=== PATIENT | male | born 1940 | race Hispanic/Latino ===

== ENCOUNTER 2017-08-07 18:06 | Emergency (ER) | payer MEDICARE ==
[~2017-08-07] VITALS: Ht 177.8 cm; Wt 95.3 kg
[~2017-08-07 18:06] MED LIST: ASPIR 8181 MG; FUROSEMIDE40 MG PO; LISINOPRIL2.5 MG PO; METOPROLOL TART25 MG PO; POTASSIUM CHLO10 ME1 PO
[2017-08-07] MEDS ORDERED: HYDROCODONE/APAP 10MG-325MG TAB PO ONE (19:00)
[2017-08-07] MEDS ORDERED: INDOMETHACIN 75 MG CAPCR PO NR (19:30)
--- NOTE | 2017-08-07 19:35 | Diagnostic Imaging Report ---
FOOT RIGHT COMPLETE - 3 views HISTORY: Pain. Possible spider bite. COMPARISON: None available. FINDINGS: Bones: No acute displaced fracture. Osseous alignment is within normal limits. Joints: Mild hallux valgus deformity and degenerative change of first metatarsophalangeal joint. Soft tissues: Soft tissue swelling about the first metatarsophalangeal joint medially. No radio-opaque foreign body. IMPRESSION: Mild hallux valgus deformity and degenerative change of first metatarsophalangeal joint. Signed by: Dr. Prabhu Teague M.D. on 08/07/2017 7:31 PM
[2017-08-07 21:18] VITALS: BP 154/86
== END 2017-08-07 21:21 | disposition home or self-care (01) ==
LOC: ER 18:06
DX: M79.671 Pain in right foot (principal); M10.071 Idiopathic gout, right ankle and foot; I10 Essential (primary) hypertension; I25.10 Atherosclerotic heart disease of native coronary artery without angina pectoris
CPT/HCPCS: 99283

== ENCOUNTER 2021-03-23 11:28 | Observation (INO) | payer MEDICARE, OTHER ==
[~2021-03-23] VITALS: Ht 177.8 cm; Wt 96.2 kg
[~2021-03-23 11:28] MED LIST changes: +ECOTRIN81 MG PO; +FAMOTIDINE20 MG PO; +LOPRESSOR25 MG PO; +TESSALON PERLE100 MG PO; +XARELTO20 MG PO
[2021-03-23] MEDS ORDERED: NEURONTIN100 MG PO (11:33)
[2021-03-23] MEDS ORDERED: VITAMIN B-121000 MC2 PO (11:34)
[2021-03-23] MEDS ORDERED: METFORMIN HCL500 M1 PO (11:35)
[2021-03-23] MEDS ORDERED: ULTRAM50 MG PO (11:35)
[2021-03-23] MEDS ORDERED: LIPITOR20 MG PO (11:36)
[2021-03-23] MEDS ORDERED: VITAMIN D3 COM1 EACH (11:37)
[2021-03-23] MEDS ORDERED: HYDROCHLOROTH12.5 MG (11:38)
[2021-03-23 12:01] LABS: BASOPHILS % 0.3 % (0.0-1.0); EOSINOPHILS % 0.1 % (0.0-6.0); HEMATOCRIT 42.9 % (38.2-49.6); HEMOGLOBIN 14.4 g/dL (14.0-18.0); LYMPHOCYTES # (AUTO) 0.9 (1.0-3.2); LYMPHOCYTES % 9.8 % (18.0-39.1); MEAN CORPUSCULAR HGB CONC 33.6 g/dL (31-35); MEAN CORPUSCULAR VOLUME 89.4 fL (81-99); MONOCYTES # (AUTO) 0.7 (0.2-0.8); NEUTROPHILS # (AUTO) 7.1 (2.1-6.9); NEUTROPHILS % 81.2 % (38.7-80.0); PLATELET COUNT 215 x10e3/uL (140-360); RED CELL DISTRIBUTION WIDTH 12.3 % (11.7-14.4)
[2021-03-23 12:40] LABS: ALBUMIN/GLOBULIN RATIO 1.2 (0.8-2.0); ANION GAP 13.5 mmol/L (8-16); CALCIUM 9.1 mg/dL (8.4-10.2); CREATININE, SERUM 1.25 mg/dL (0.72-1.25); POTASSIUM 4.5 mmol/L (3.5-5.1)
[2021-03-23] MEDS ORDERED: METOPROLOL TARTRATE 25 MG TAB PO ONE (14:00)
[2021-03-23] MEDS ORDERED: ONDANSETRON HCL INJ 2MG/ML 2ML 2 MG/ML VIAL IV PRN (15:45)
[2021-03-23 16:29] VITALS: BP 124/84
[2021-03-23] MEDS: INSULIN LISPRO 100 UNIT/1 ML 3ML VIAL SQ SCH ×2 (16:30→21:00)
[2021-03-23] MEDS ORDERED: DEXTROSE 50% SYRINGE 50 ML IV PRN (16:45)
[2021-03-23 17:29] VITALS: BP 124/84
[2021-03-23 20:00] VITALS: BP_SYST 127; BP_SYST 130; BP_DIAS 57; BP_DIAS 90
[2021-03-24] VITALS (8 sets, daily range): BP systolic 116–153; BP diastolic 82–98
[2021-03-24 05:26] LABS: BASOPHILS % 0.3 % (0.0-1.0); EOSINOPHILS # (AUTO) 0.1 (0.0-0.4); EOSINOPHILS % 1.5 % (0.0-6.0); HEMATOCRIT 41.1 % (38.2-49.6); HEMOGLOBIN 13.7 g/dL (14.0-18.0); LYMPHOCYTES # (AUTO) 1.4 (1.0-3.2); MEAN CORPUSCULAR HEMOGLOBIN 30.1 pg (28-32); MEAN CORPUSCULAR HGB CONC 33.3 g/dL (31-35); MEAN CORPUSCULAR VOLUME 90.3 fL (81-99); MONOCYTES # (AUTO) 0.8 (0.2-0.8); MONOCYTES % 10.7 % (4.4-11.3); NEUTROPHILS % 68.1 % (38.7-80.0); PLATELET COUNT 184 x10e3/uL (140-360); RED BLOOD COUNT 4.55 x10e6/uL (4.3-5.7); RED CELL DISTRIBUTION WIDTH 12.2 % (11.7-14.4)
[2021-03-24 05:43] LABS: INR 1.14; PARTIAL THROMBOPLASTIN TIME 39.4 seconds (23.8-35.5); PROTHROMBIN TIME 14.8 seconds (11.9-14.5)
[2021-03-24 05:51] LABS: ANION GAP 13.9 mmol/L (8-16); CALCIUM 8.9 mg/dL (8.4-10.2); CREATININE, SERUM 0.85 mg/dL (0.72-1.25); POTASSIUM 3.9 mmol/L (3.5-5.1)
[2021-03-24 06:11] LABS: THYROID STIMULATING HORMONE 2.192 uIU/mL (0.350-4.940)
[2021-03-24] MEDS: INSULIN LISPRO 100 UNIT/1 ML 3ML VIAL SQ SCH ×4 (07:30→20:32)
[2021-03-24] MEDS: GABAPENTIN 100 MG CAP PO SCH ×2 (08:20→16:32)
[2021-03-24] MEDS: FAMOTIDINE 20 MG TAB PO SCH ×2 (08:20→16:32)
[2021-03-24] MEDS: CYANOCOBALAMIN 1,000 MCG TAB PO SCH (08:20)
[2021-03-24] MEDS ORDERED: METOPROLOL TARTRATE 25 MG TAB PO SCH (09:00)
[2021-03-24] MEDS: ACETAMINOPHEN 325 MG TAB PO PRN ×3 (10:39→23:10)
[2021-03-24] MEDS: CARVEDILOL 12.5 MG TAB PO SCH (16:05)
[2021-03-25 00:05] VITALS: BP 163/98
[2021-03-25 04:00] VITALS: BP 162/99
[2021-03-25] MEDS: INSULIN LISPRO 100 UNIT/1 ML 3ML VIAL SQ SCH ×2 (07:21→11:21)
[2021-03-25 07:44] VITALS: BP 160/88
[2021-03-25] MEDS: FAMOTIDINE 20 MG TAB PO SCH (08:06)
[2021-03-25] MEDS: CYANOCOBALAMIN 1,000 MCG TAB PO SCH (08:07)
[2021-03-25] MEDS: GABAPENTIN 100 MG CAP PO SCH (08:07)
[2021-03-25] MEDS: CARVEDILOL 12.5 MG TAB PO SCH (08:07)
[2021-03-25] MEDS: ACETAMINOPHEN 325 MG TAB PO PRN (08:39)
[2021-03-25 08:44] VITALS: BP 152/109
[2021-03-25] MEDS ORDERED: LOSARTAN POTASSIUM 25 MG TAB PO SCH (09:00)
[2021-03-25 12:15] VITALS: BP 153/82
[2021-03-25] MEDS ORDERED: COZAAR25 MG PO (14:00)
[2021-03-25] MEDS ORDERED: COREG12.5 MG PO (14:00)
[2021-03-25 15:18] VITALS: BP 115/49
== END 2021-03-25 15:43 | disposition home or self-care (01) ==
LOC: ER 11:32 → ERHOLD 13:40 → MED/SURG3 16:16
PROVIDERS: ADMIT Internal Medicine; ATTEND Internal Medicine
DX: R55 Syncope and collapse (principal); I48.11 Longstanding persistent atrial fibrillation; E11.9 Type 2 diabetes mellitus without complications; R00.0 Tachycardia, unspecified; E78.00 Pure hypercholesterolemia, unspecified; I11.0 Hypertensive heart disease with heart failure; I50.22 Chronic systolic (congestive) heart failure; M19.012 Primary osteoarthritis, left shoulder; M19.011 Primary osteoarthritis, right shoulder; Z86.73 Personal history of transient ischemic attack (TIA), and cerebral infarction without residual deficits; M54.12 Radiculopathy, cervical region; Z79.82 Long term (current) use of aspirin; Z79.84 Long term (current) use of oral hypoglycemic drugs
CPT/HCPCS: 36415 ×3; 70450; 71045; 72125; 73030 ×2; 80048; 80053; 80061; 82550; 82948 ×3; 83036; 83880; 84443; 84484 ×2; 85025 ×2; 85610 ×2; 85730; 86140; 93005; 93306; 93880; 97116; 97162; 99285; G0378 ×3; U0002

== ENCOUNTER 2021-08-16 16:38 | Inpatient (IN) | payer MEDICARE, MEDICAID ==
[~2021-08-16] VITALS: Ht 177.8 cm; Wt 97.5 kg
[~2021-08-16 16:38] MED LIST changes: +COREG12.5 MG PO; +COZAAR25 MG PO; +HYDROCHLOROTH12.5 MG; +LIPITOR20 MG PO; +METFORMIN HCL500 M1 PO; +NEURONTIN100 MG PO; +ULTRAM50 MG PO; +VITAMIN B-121000 MC2 PO; +VITAMIN D3 COM1 EACH
[2021-08-16 17:42] LABS: BASOPHILS % 0.2 % (0.0-1.0); EOSINOPHILS # (AUTO) 0.1 (0.0-0.4); EOSINOPHILS % 1.1 % (0.0-6.0); HEMATOCRIT 41.8 % (38.2-49.6); HEMOGLOBIN 13.4 g/dL (14.0-18.0); LYMPHOCYTES # (AUTO) 1.2 (1.0-3.2); MEAN CORPUSCULAR HEMOGLOBIN 28.2 pg (28-32); MEAN CORPUSCULAR HGB CONC 32.1 g/dL (31-35); MONOCYTES # (AUTO) 0.8 (0.2-0.8); MONOCYTES % 8.6 % (4.4-11.3); NEUTROPHILS # (AUTO) 7.3 (2.1-6.9); NEUTROPHILS % 76.6 % (38.7-80.0); PLATELET COUNT 209 x10e3/uL (140-360); RED BLOOD COUNT 4.75 x10e6/uL (4.3-5.7); RED CELL DISTRIBUTION WIDTH 15.4 % (11.7-14.4)
[2021-08-16 18:01] LABS: ALBUMIN 3.8 g/dL (3.5-5.0); ALBUMIN/GLOBULIN RATIO 1.1 (0.8-2.0); ANION GAP 17.2 mmol/L (8-16); CALCIUM 9.5 mg/dL (8.4-10.2); CREATININE, SERUM 1.11 mg/dL (0.72-1.25); POTASSIUM 4.2 mmol/L (3.5-5.1)
[2021-08-16] MEDS ORDERED: SODIUM CHLORIDE 0.9% 500ML 500 ML IV ONE (18:45)
[2021-08-16] MEDS ORDERED: SODIUM CHLORIDE 0.9% 50ML 50 ML ONE (19:35)
[2021-08-16] MEDS ORDERED: IOPAMIDOL 370 MG/ML 200 ML INFUS..BTL INJ ONE (19:35)
[2021-08-16] MEDS: CEFTRIAXONE 1 GM in SODIUM CHLORIDE 0.9% 50ML 50 ML IV SCH (20:10)
[2021-08-16] MEDS ORDERED: FUROSEMIDE INJ 10 MG/ML 4 ML VIAL IV ONE (20:15)
[2021-08-16] MEDS ORDERED: DILTIAZEM HCL 5 MG/ML 5 ML VIAL IV ONE (22:00)
[2021-08-16] MEDS ORDERED: DILTIAZEM HCL VIAL 5 ML ONE (22:12)
[2021-08-16 22:50] VITALS: BP 123/79
[2021-08-16 23:03] VITALS: BP 123/79
[2021-08-16 23:20] VITALS: BP 123/79
[2021-08-16] MEDS ORDERED: ALLOPURINOL100 MG PO (23:31)
[2021-08-16] MEDS ORDERED: JANUVIA50 MG PO (23:34)
[2021-08-17] VITALS (9 sets, daily range): BP systolic 104–137; BP diastolic 63–90
[2021-08-17] MEDS ORDERED: DEXTROSE 50% SYRINGE 50 ML IV PRN (00:45)
[2021-08-17 01:06] LABS: CREATINE KINASE MB 2.2 ng/mL (0-5.0)
[2021-08-17] MEDS ORDERED: ATORVASTATIN CA10 MG PO (01:06)
[2021-08-17] MEDS ORDERED: CARVEDILOL6.25 MG PO (01:06)
[2021-08-17] MEDS ORDERED: FLOMAX0.4 MG PO (01:06)
[2021-08-17 05:00] LABS: BASOPHILS % 0.3 % (0.0-1.0); EOSINOPHILS # (AUTO) 0.2 (0.0-0.4); EOSINOPHILS % 2.3 % (0.0-6.0); HEMATOCRIT 38.6 % (38.2-49.6); HEMOGLOBIN 12.7 g/dL (14.0-18.0); LYMPHOCYTES # (AUTO) 1.2 (1.0-3.2); LYMPHOCYTES % 17.6 % (18.0-39.1); MEAN CORPUSCULAR HEMOGLOBIN 28.2 pg (28-32); MEAN CORPUSCULAR HGB CONC 32.9 g/dL (31-35); MEAN CORPUSCULAR VOLUME 85.6 fL (81-99); MONOCYTES # (AUTO) 0.8 (0.2-0.8); MONOCYTES % 11.5 % (4.4-11.3); NEUTROPHILS # (AUTO) 4.5 (2.1-6.9); NEUTROPHILS % 67.8 % (38.7-80.0); PLATELET COUNT 187 x10e3/uL (140-360); RED BLOOD COUNT 4.51 x10e6/uL (4.3-5.7); RED CELL DISTRIBUTION WIDTH 15.1 % (11.7-14.4)
[2021-08-17 05:19] LABS: INR 1.37; PARTIAL THROMBOPLASTIN TIME 37.1 seconds (23.8-35.5)
[2021-08-17 05:30] LABS: ALBUMIN 3.3 g/dL (3.5-5.0); ALBUMIN/GLOBULIN RATIO 1.1 (0.8-2.0); ANION GAP 14.7 mmol/L (8-16); CALCIUM 8.7 mg/dL (8.4-10.2); CHOL/HDL RATIO 5.4 (3.9-4.7); CREATININE, SERUM 1.12 mg/dL (0.72-1.25); MAGNESIUM 1.9 MG/DL (1.3-2.1); POTASSIUM 3.7 mmol/L (3.5-5.1)
[2021-08-17 05:53] LABS: THYROID STIMULATING HORMONE 2.862 uIU/mL (0.350-4.940)
[2021-08-17] MEDS: INSULIN LISPRO 100 UNIT/1 ML 3ML VIAL SQ SCH ×4 (07:30→21:00)
[2021-08-17] MEDS ORDERED: SODIUM CHLORIDE 0.9% 250ML 500 ML ONE (08:11)
[2021-08-17] MEDS: CARVEDILOL 12.5 MG TAB PO SCH ×2 (09:00→16:40)
[2021-08-17] MEDS: FUROSEMIDE INJ 10 MG/ML 4 ML VIAL IV SCH ×2 (09:50→21:21)
[2021-08-17] MEDS: RIVAROXABAN 20 MG TABLET PO SCH (16:41)
[2021-08-17] MEDS ORDERED: AMIODARONE HCL 360MG 200 ML IV SCH ×2 (17:30→18:00)
[2021-08-17] MEDS: VALSARTAN/SACUBITRIL 24MG/26MG 1 EA TAB PO SCH (18:00)
[2021-08-17] MEDS ORDERED: AMIODARONE HCL 150MG 100 ML IV ONE (18:00)
[2021-08-17] MEDS ORDERED: AMIODARONE 900MG 500 ML IV SCH (18:15)
[2021-08-17] MEDS: AMIODARONE HCL 200 MG TAB PO SCH (18:25)
[2021-08-17 20:08] LABS: CREATINE KINASE MB 1.9 ng/mL (0-5.0)
[2021-08-17] MEDS: CEFTRIAXONE 1 GM in SODIUM CHLORIDE 0.9% 50ML 50 ML IV SCH (21:21)
[2021-08-18] MEDS ORDERED: AMIODARONE 900MG 500 ML IV SCH (00:30)
[2021-08-18] MEDS: AMIODARONE HCL 200 MG TAB PO SCH ×3 (02:13→18:00)
[2021-08-18 05:56] VITALS: BP 108/82
[2021-08-18 05:59] LABS: BASOPHILS % 0.4 % (0.0-1.0); EOSINOPHILS # (AUTO) 0.1 (0.0-0.4); HEMATOCRIT 40.7 % (38.2-49.6); HEMOGLOBIN 13.1 g/dL (14.0-18.0); LYMPHOCYTES # (AUTO) 1.3 (1.0-3.2); LYMPHOCYTES % 19.2 % (18.0-39.1); MEAN CORPUSCULAR HEMOGLOBIN 28.2 pg (28-32); MEAN CORPUSCULAR HGB CONC 32.2 g/dL (31-35); MEAN CORPUSCULAR VOLUME 87.7 fL (81-99); MONOCYTES # (AUTO) 0.6 (0.2-0.8); MONOCYTES % 8.3 % (4.4-11.3); NEUTROPHILS # (AUTO) 4.8 (2.1-6.9); NEUTROPHILS % 69.7 % (38.7-80.0); PLATELET COUNT 217 x10e3/uL (140-360); RED BLOOD COUNT 4.64 x10e6/uL (4.3-5.7); RED CELL DISTRIBUTION WIDTH 15.2 % (11.7-14.4)
[2021-08-18 06:14] LABS: ANION GAP 18.7 mmol/L (8-16); CALCIUM 8.9 mg/dL (8.4-10.2); CREATININE, SERUM 1.2 mg/dL (0.72-1.25); MAGNESIUM 2.1 MG/DL (1.3-2.1); POTASSIUM 3.7 mmol/L (3.5-5.1)
[2021-08-18 06:36] LABS: FERRITIN 139.4 ng/mL (21.81-274.66)
[2021-08-18] MEDS: INSULIN LISPRO 100 UNIT/1 ML 3ML VIAL SQ SCH ×4 (07:30→21:00)
[2021-08-18 08:06] VITALS: BP 105/80
[2021-08-18] MEDS: FUROSEMIDE INJ 10 MG/ML 4 ML VIAL IV SCH ×2 (09:51→21:02)
[2021-08-18] MEDS: CARVEDILOL 12.5 MG TAB PO SCH ×2 (09:51→17:00)
[2021-08-18] MEDS: VALSARTAN/SACUBITRIL 24MG/26MG 1 EA TAB PO SCH ×2 (09:56→21:02)
[2021-08-18 10:40] VITALS: BP 105/80
[2021-08-18 11:48] VITALS: BP 115/93
[2021-08-18] MEDS: RIVAROXABAN 20 MG TABLET PO SCH (17:16)
[2021-08-18 20:00] VITALS: BP 91/74
[2021-08-18] MEDS: CEFTRIAXONE 1 GM in SODIUM CHLORIDE 0.9% 50ML 50 ML IV SCH (20:30)
[2021-08-18 21:46] VITALS: BP 91/74
[2021-08-19] VITALS (8 sets, daily range): BP systolic 82–126; BP diastolic 64–87
[2021-08-19] MEDS: AMIODARONE HCL 200 MG TAB PO SCH ×3 (05:11→17:11)
[2021-08-19] MEDS: INSULIN LISPRO 100 UNIT/1 ML 3ML VIAL SQ SCH ×4 (07:30→21:00)
[2021-08-19] MEDS: FUROSEMIDE INJ 10 MG/ML 4 ML VIAL IV SCH (09:00)
[2021-08-19] MEDS: VALSARTAN/SACUBITRIL 24MG/26MG 1 EA TAB PO SCH ×2 (09:00→20:20)
[2021-08-19] MEDS: CARVEDILOL 12.5 MG TAB PO SCH (09:01)
[2021-08-19 10:20] LABS: ANION GAP 17.1 mmol/L (8-16); CREATININE, SERUM 1.38 mg/dL (0.72-1.25); POTASSIUM 4.1 mmol/L (3.5-5.1)
[2021-08-19] MEDS: CARVEDILOL 3.125 MG TAB PO SCH (17:00)
[2021-08-19] MEDS: RIVAROXABAN 20 MG TABLET PO SCH (17:08)
[2021-08-19] MEDS: CEFTRIAXONE 1 GM in SODIUM CHLORIDE 0.9% 50ML 50 ML IV SCH (20:20)
[2021-08-20] VITALS: BP 135/75
[2021-08-20] MEDS: AMIODARONE HCL 200 MG TAB PO SCH (03:38)
[2021-08-20 04:00] VITALS: BP 119/72
[2021-08-20] MEDS: INSULIN LISPRO 100 UNIT/1 ML 3ML VIAL SQ SCH (07:30)
[2021-08-20 08:23] VITALS: BP 133/98
[2021-08-20 08:25] VITALS: BP 133/98
[2021-08-20] MEDS ORDERED: COREG3.125 MG PO (08:26)
[2021-08-20] MEDS ORDERED: ENTRESTO 24 MG1 EACH PO (08:26)
[2021-08-20] MEDS ORDERED: AMIODARONE HCL200 MG PO (08:26)
[2021-08-20] MEDS ORDERED: AMOX TR-K CLV1 EAC2 PO (08:26)
[2021-08-20] MEDS ORDERED: XARELTO10 MG PO (08:26)
[2021-08-20] MEDS ORDERED: FUROSEMIDE 40 MG TAB PO SCH (09:00)
[2021-08-20 09:08] LABS: ANION GAP 14.1 mmol/L (8-16); CALCIUM 9.1 mg/dL (8.4-10.2); CREATININE, SERUM 1.32 mg/dL (0.72-1.25); POTASSIUM 4.1 mmol/L (3.5-5.1)
[2021-08-20] MEDS: VALSARTAN/SACUBITRIL 24MG/26MG 1 EA TAB PO SCH (09:36)
[2021-08-20] MEDS: CARVEDILOL 3.125 MG TAB PO SCH (09:36)
[2021-08-20] MEDS ORDERED: AMIODARONE HCL 200 MG TAB PO SCH ×2 (10:00)
[2021-08-20] MEDS ORDERED: FUROSEMIDE40 MG PO (10:56)
== END 2021-08-20 10:59 | disposition home or self-care (01) | DRG 193 ==
LOC: ER 17:19 → ERHOLD 20:42 → MED/SURG2 22:33 → OBSVTOIN 08-17 16:11
PROVIDERS: ADMIT Internal Medicine; ATTEND Internal Medicine
DX: J18.9 Pneumonia, unspecified organism (principal); I50.23 Acute on chronic systolic (congestive) heart failure; I42.8 Other cardiomyopathies; I11.0 Hypertensive heart disease with heart failure; I48.0 Paroxysmal atrial fibrillation; Z79.01 Long term (current) use of anticoagulants; E11.9 Type 2 diabetes mellitus without complications; E66.9 Obesity, unspecified; Z68.30 Body mass index [BMI] 30.0-30.9, adult; Z20.822 Contact with and (suspected) exposure to COVID-19
CPT/HCPCS: 36415; 71045; 71260; 80048; 80053; 80061; 82550; 82553; 82607; 82728; 82746; 82948; 83540; 83605; 83735; 83880; 84443; 84466; 84484; 85025; 85379; 85610; 85730; 87040; 93005; 93306; 94799; 99284; G0378; J0456; J0696; J1940; J7040; J7050; Q9967; U0002

== ENCOUNTER 2022-04-11 04:21 | Emergency (ER) | payer MEDICARE, OTHER ==
[~2022-04-11] VITALS: Ht 330.2 cm; Wt 97.5 kg
[~2022-04-11 04:21] MED LIST changes: +ALLOPURINOL100 MG PO; +AMIODARONE HCL200 MG PO; +AMOX TR-K CLV1 EAC2 PO; +ATORVASTATIN CA10 MG PO; +CARVEDILOL6.25 MG PO; +COREG3.125 MG PO; +ENTRESTO 24 MG1 EACH PO; +FLOMAX0.4 MG PO; +JANUVIA50 MG PO; +XARELTO10 MG PO
[2022-04-11] MEDS ORDERED: NAPROSYN500 MG PO (04:34)
[2022-04-11 05:40] VITALS: BP 166/94
== END 2022-04-11 05:40 | disposition home or self-care (01) ==
LOC: ER 04:30
DX: M25.511 Pain in right shoulder (principal); W06.XXXA Fall from bed, initial encounter; Y93.84 Activity, sleeping; Y92.89 Other specified places as the place of occurrence of the external cause; E11.9 Type 2 diabetes mellitus without complications; I50.9 Heart failure, unspecified
CPT/HCPCS: 99283

== ENCOUNTER 2025-02-01 12:59 | Inpatient (IN) | payer MEDICARE, OTHER ==
[2025-02-01] VITALS (8 sets, daily range): BP systolic 106–140; BP diastolic 60–99; PULSE 86–112; RESP 18–32; TEMP 98.2–98.4; O2SAT 96–99
[~2025-02-01] VITALS: Ht 177.8 cm; Wt 95.3 kg
[~2025-02-01 12:59] MED LIST changes: +CARVEDILOL3.125 MG PO; +CLINDAMYCIN HC150 MG PO; +LEVOFLOXACIN250 MG PO; +NAPROSYN500 MG PO
[2025-02-01 14:06] LABS: BASOPHILS % 0.4 % (0.0-1.0); EOSINOPHILS % 0.0 % (0.0-6.0); LYMPHOCYTES % 13.8 % (18.0-39.1); MONOCYTES % 7.1 % (4.4-11.3); NEUTROPHILS % 78.3 % (38.7-80.0); RED CELL DISTRIBUTION WIDTH 13.2 % (11.7-14.4)
[2025-02-01 14:09] LABS: INR 3.33
[2025-02-01 14:19] LABS: EST GLOMERULAR FILTRATION RATE 33.0 ML/MIN (>=60)
[2025-02-01 14:29] LABS: CORONAVIRUS COVID-19 AG NEGATIVE (NEGATIVE)
[2025-02-01] MEDS: SODIUM CHLORIDE 0.9% 500ML 500 ML IV ONE (15:07)
[2025-02-01 15:22] LABS: LEUKOCYTE ESTERASE ,URINE NEGATIVE (NEGATIVE); PROTEIN,URINE DIPSTICK 2+ (NEGATIVE); URINE UROBILINOGEN >=8 mg/dL (0.2 - 1)
[2025-02-01] MEDS ORDERED: TEMAZEPAM 7.5 MG CAP PO PRN (16:30)
[2025-02-01] MEDS: ACETAMINOPHEN 325 MG TAB PO PRN (19:37)
[2025-02-01] MEDS: TAMSULOSIN HCL 0.4 MG CAP PO SCH (20:04)
[2025-02-01] MEDS: ATORVASTATIN 10 MG TAB PO SCH (20:05)
[2025-02-02] VITALS (25 sets, daily range): BP systolic 84–137; BP diastolic 53–82; PULSE 62–132; RESP 16–38; TEMP 97.9–103; O2SAT 90–100
[2025-02-02 05:28] LABS: BASOPHILS % 0.4 % (0.0-1.0); EOSINOPHILS % 0.0 % (0.0-6.0); LYMPHOCYTES % 8.1 % (18.0-39.1); MONOCYTES % 6.5 % (4.4-11.3); NEUTROPHILS % 84.6 % (38.7-80.0); RED CELL DISTRIBUTION WIDTH 13.2 % (11.7-14.4)
[2025-02-02 05:42] LABS: CHOL/HDL RATIO 8.5 (3.9-4.7); EST GLOMERULAR FILTRATION RATE 42.0 ML/MIN (>=60); LDL CHOLESTEROL 66.0 MG/DL (60-130)
[2025-02-02] MEDS: AMIODARONE HCL 200 MG TAB PO SCH (09:00)
[2025-02-02 09:13] LABS: BAND NEUTROPHILS % (MANUAL) 1 %; EOSINOPHILS % (MANUAL) 1 % (0-7); LYMPHOCYTES % (MANUAL) 8 % (19-48); MONOCYTES % (MANUAL) 2 % (3.4-9.0); NEUTROPHILS % (MANUAL) 86 % (40-74); PLATELET ESTIMATE MODERATELY DECREASED; PLATELET MORPHOLOGY COMMENT NORMAL; RBC MORPHOLOGY COMMENT NORMAL; REACTIVE LYMPHOCYTES 2
[2025-02-02] MEDS ORDERED: DOCUSATE SODIUM 100 MG CAP PO PRN (09:15)
[2025-02-02] MEDS ORDERED: DEXTROSE 50% SYRINGE 50 ML IV PRN (09:15)
[2025-02-02] MEDS: SODIUM CHLORIDE 0.9% 1000ML 1,000 ML IV SCH (09:39)
[2025-02-02] MEDS: CARVEDILOL 3.125 MG TAB PO SCH (09:40)
[2025-02-02] MEDS: RIVAROXABAN 10 MG TABLET PO SCH (12:35)
[2025-02-02] MEDS: INSULIN REGULAR, HUMAN 100 UNIT/1 ML SQ SCH (13:07)
[2025-02-02] MEDS ORDERED: CARVEDILOL 3.125 MG TAB PO SCH ×2 (17:00)
[2025-02-02] MEDS: GABAPENTIN 100 MG CAP PO SCH (18:09)
[2025-02-03] VITALS (31 sets, daily range): BP systolic 79–117; BP diastolic 48–85; PULSE 92–115; RESP 16–31; TEMP 98.2–99.6; O2SAT 94–100
[2025-02-03 04:59] LABS: BASOPHILS % 0.4 % (0.0-1.0); EOSINOPHILS % 0.0 % (0.0-6.0); LYMPHOCYTES % 12.7 % (18.0-39.1); MONOCYTES % 4.7 % (4.4-11.3); NEUTROPHILS % 81.8 % (38.7-80.0); RED CELL DISTRIBUTION WIDTH 13.4 % (11.7-14.4)
[2025-02-03 05:28] LABS: EST GLOMERULAR FILTRATION RATE 41.0 ML/MIN (>=60)
[2025-02-03 08:01] LABS: BAND NEUTROPHILS % (MANUAL) 1 %; LYMPHOCYTES % (MANUAL) 11 % (19-48); MONOCYTES % (MANUAL) 2 % (3.4-9.0); NEUTROPHILS % (MANUAL) 84 % (40-74); PLATELET ESTIMATE MODERATELY DECREASED; PLATELET MORPHOLOGY COMMENT NORMAL; RBC MORPHOLOGY COMMENT NORMAL; REACTIVE LYMPHOCYTES 2
[2025-02-03] MEDS: ALLOPURINOL 100 MG TAB PO SCH (10:12)
[2025-02-04] VITALS (41 sets, daily range): BP systolic 69–121; BP diastolic 47–81; PULSE 32–146; RESP 16–33; TEMP 97.5–102; O2SAT 85–100
[2025-02-04 05:57] LABS: EST GLOMERULAR FILTRATION RATE 33.0 ML/MIN (>=60)
[2025-02-04] MEDS: ONDANSETRON HCL INJ 2MG/ML 2ML 2 MG/ML VIAL IV PRN (09:10)
[2025-02-04] MEDS: FUROSEMIDE INJ 10 MG/ML 4 ML VIAL IV ONE (10:40)
[2025-02-04] MEDS: MIDODRINE 2.5 MG TAB PO SCH (11:19)
[2025-02-04 16:01] LABS: CREATININE,URINE RANDOM 164.48 mg/dL (63-166); TOTAL PROTEIN, URINE 28.1 mg/dL (1-14)
[2025-02-04] MEDS: SODIUM CHLORIDE 0.9% 1000ML 1,000 ML IV ONE (16:12)
[2025-02-04] MEDS: MIDODRINE HCL 5 MG TABLET PO SCH (16:12)
[2025-02-04 16:40] LABS: T3 UPTAKE 33.37 % (22.5-37.0)
[2025-02-04] MEDS: ALBUTEROL/IPRATROPIUM 3 ML NEB NEB PRN (18:51)
[2025-02-05] VITALS (54 sets, daily range): BP systolic 62–111; BP diastolic 43–72; PULSE 31–143; RESP 20–34; TEMP 98.2–102.5; O2SAT 92–99
[2025-02-05 06:50] LABS: BASOPHILS % 0.4 % (0.0-1.0); EOSINOPHILS % 0.1 % (0.0-6.0); LYMPHOCYTES % 7.2 % (18.0-39.1); MONOCYTES % 4.7 % (4.4-11.3); NEUTROPHILS % 86.5 % (38.7-80.0); RED CELL DISTRIBUTION WIDTH 14.1 % (11.7-14.4)
[2025-02-05 06:54] LABS: EST GLOMERULAR FILTRATION RATE 22.0 ML/MIN (>=60)
[2025-02-05] MEDS: METOPROLOL SUCCINATE 25 MG TAB XL PO SCH (08:03)
[2025-02-05 13:40] LABS: BAND NEUTROPHILS % (MANUAL) 6 %; LYMPHOCYTES % (MANUAL) 7 % (19-48); MONOCYTES % (MANUAL) 6 % (3.4-9.0); NEUTROPHILS % (MANUAL) 81 % (40-74); PLATELET ESTIMATE MARKEDLY DECREASED; PLATELET MORPHOLOGY COMMENT NORMAL; RBC MORPHOLOGY COMMENT NORMAL
[2025-02-05] MEDS: ALBUMIN 25% 25GM 100ML 0.25 GM/ML BTL IV ONE (21:07)
[2025-02-05] MEDS: VASOPRESSIN 60 UNIT in DEXTROSE 5% 50ML 50 ML IV SCH (22:32)
[2025-02-06] VITALS (94 sets, daily range): BP systolic 69–139; BP diastolic 42–108; PULSE 29–129; RESP 18–40; TEMP 96.2–98.6; O2SAT 87–100
[2025-02-06 02:12] LABS: RHEUMATOID FACTOR 13.6 IU/mL (<14.0)
[2025-02-06] MEDS: ACETAMINOPHEN 1000 MG/100 ML 100 ML IV ONE (03:31)
[2025-02-06] MEDS: ACETAMINOPHEN 1000 MG/100 ML IV STA (03:31)
[2025-02-06 05:16] LABS: BASOPHILS % 0.6 % (0.0-1.0); EOSINOPHILS % 0.1 % (0.0-6.0); LYMPHOCYTES % 7.0 % (18.0-39.1); MONOCYTES % 4.5 % (4.4-11.3); NEUTROPHILS % 86.6 % (38.7-80.0); RED CELL DISTRIBUTION WIDTH 14.4 % (11.7-14.4)
[2025-02-06 05:41] LABS: EST GLOMERULAR FILTRATION RATE 18.0 ML/MIN (>=60)
[2025-02-06] MEDS: MIDODRINE HCL 5 MG TABLET PO SCH (08:10)
[2025-02-06] MEDS: VASOPRESSIN 60 UNIT in DEXTROSE 5% 50ML 60 ML IV SCH (11:20)
[2025-02-06] MEDS: SODIUM BICARBONATE 8.4% VIAL 150 ML in STERILE WATER IV SOLN 1,000 ML IV SCH (11:30)
[2025-02-06 13:17] LABS: CYCLIC CITRULLINATED PEPTID AB 2.0 units (0-19)
[2025-02-06] MEDS: HEPARIN SOD (PORCINE) 5,000 UNIT/ML VIAL SC SCH (21:25)
[2025-02-07] VITALS (43 sets, daily range): BP systolic 82–111; BP diastolic 48–76; PULSE 38–126; RESP 20–31; TEMP 97.9–100.5; O2SAT 88–100
[2025-02-07 05:11] LABS: BASOPHILS % 1.2 % (0.0-1.0); EOSINOPHILS % 0.5 % (0.0-6.0); LYMPHOCYTES % 8.8 % (18.0-39.1); MONOCYTES % 4.4 % (4.4-11.3); NEUTROPHILS % 84.3 % (38.7-80.0); RED CELL DISTRIBUTION WIDTH 14.6 % (11.7-14.4)
[2025-02-07 05:39] LABS: EST GLOMERULAR FILTRATION RATE 27.0 ML/MIN (>=60)
[2025-02-07 08:41] LABS: BAND NEUTROPHILS % (MANUAL) 3 %; LYMPHOCYTES % (MANUAL) 7 % (19-48); MONOCYTES % (MANUAL) 6 % (3.4-9.0); NEUTROPHILS % (MANUAL) 84 % (40-74)
[2025-02-07 08:42] LABS: PLATELET ESTIMATE MODERATELY DECREASED; PLATELET MORPHOLOGY COMMENT NORMAL; VACUOLE,WBC SLIGHT
[2025-02-07 11:18] LABS: ABG BASE EXCESS -1.0 mmol/L (-2 - 3); ABG HCO3 24 mmol/L (22-26); ABG OXYGEN SATURATION 97.0 % (95-98); ABG PCO2 35 mmHg (35-45); ABG PH 7.43 (7.35-7.45); ABG PO2 91 mmHg (80-105); ABG TCO2 25
[2025-02-08] VITALS (26 sets, daily range): BP systolic 85–119; BP diastolic 51–87; PULSE 30–107; RESP 17–29; TEMP 97.9–98.6; O2SAT 92–100
[2025-02-08 05:51] LABS: BASOPHILS % 0.7 % (0.0-1.0); EOSINOPHILS % 1.3 % (0.0-6.0); LYMPHOCYTES % 8.3 % (18.0-39.1); MONOCYTES % 3.6 % (4.4-11.3); NEUTROPHILS % 84.9 % (38.7-80.0); RED CELL DISTRIBUTION WIDTH 14.6 % (11.7-14.4)
[2025-02-08 07:01] LABS: EST GLOMERULAR FILTRATION RATE 40.0 ML/MIN (>=60)
[2025-02-08] MEDS: METOPROLOL SUCCINATE 25 MG TAB XL PO SCH (09:41)
[2025-02-08 10:57] LABS: EOSINOPHILS % (MANUAL) 1 % (0-7); LYMPHOCYTES % (MANUAL) 7 % (19-48); MONOCYTES % (MANUAL) 6 % (3.4-9.0); NEUTROPHILS % (MANUAL) 86 % (40-74)
[2025-02-08 10:58] LABS: PLATELET ESTIMATE SLIGHTLY DECREASED; PLATELET MORPHOLOGY COMMENT NORMAL
[2025-02-09] VITALS (9 sets, daily range): BP systolic 95–128; BP diastolic 60–87; PULSE 83–103; RESP 16–23; TEMP 97.2–99.5; O2SAT 90–100
[2025-02-09 06:14] LABS: BASOPHILS % 0.5 % (0.0-1.0); EOSINOPHILS % 1.0 % (0.0-6.0); LYMPHOCYTES % 8.9 % (18.0-39.1); MONOCYTES % 4.3 % (4.4-11.3); NEUTROPHILS % 84.0 % (38.7-80.0); RED CELL DISTRIBUTION WIDTH 14.6 % (11.7-14.4)
[2025-02-09 06:31] LABS: INR 0.95
[2025-02-09 06:46] LABS: EST GLOMERULAR FILTRATION RATE 45.0 ML/MIN (>=60)
[2025-02-09] MEDS ORDERED: CEFAZOLIN SODIUM 2 GM in SODIUM CHLORIDE 0.9% 100 ML IV PRN (08:30)
[2025-02-09 09:06] LABS: LYMPHOCYTES % (MANUAL) 8 % (19-48); MONOCYTES % (MANUAL) 3 % (3.4-9.0); NEUTROPHILS % (MANUAL) 89 % (40-74); PLATELET ESTIMATE SLIGHTLY DECREASED; PLATELET MORPHOLOGY COMMENT NORMAL
[2025-02-09] MEDS: SODIUM CHLORIDE 0.9% 250ML 250 ML ONE (16:51)
[2025-02-09] MEDS: DOXYCYCLINE HYCLATE TABLET 100 MG TAB PO SCH (16:52)
[2025-02-10] VITALS (10 sets, daily range): BP systolic 89–120; BP diastolic 58–79; PULSE 67–99; RESP 17–20; TEMP 97.2–98; O2SAT 91–100
[2025-02-10 09:27] LABS: BASOPHILS % 0.3 % (0.0-1.0); EOSINOPHILS % 0.7 % (0.0-6.0); LYMPHOCYTES % 10.1 % (18.0-39.1); MONOCYTES % 4.7 % (4.4-11.3); NEUTROPHILS % 80.9 % (38.7-80.0); RED CELL DISTRIBUTION WIDTH 14.5 % (11.7-14.4)
[2025-02-10 09:52] LABS: EST GLOMERULAR FILTRATION RATE 64.0 ML/MIN (>=60)
[2025-02-11] VITALS (11 sets, daily range): BP systolic 104–131; BP diastolic 53–75; PULSE 81–97; RESP 17–20; TEMP 97.4–98.1; O2SAT 95–97
[2025-02-11] MEDS: MELATONIN 3 MG TAB PO PRN (02:29)
[2025-02-11 06:32] LABS: BASOPHILS % 0.5 % (0.0-1.0); EOSINOPHILS % 1.1 % (0.0-6.0); LYMPHOCYTES % 17.9 % (18.0-39.1); MONOCYTES % 6.5 % (4.4-11.3); NEUTROPHILS % 69.0 % (38.7-80.0); RED CELL DISTRIBUTION WIDTH 14.5 % (11.7-14.4)
[2025-02-11 07:00] LABS: ABG BASE EXCESS -1.0 mmol/L (-2 - 3); ABG HCO3 24 mmol/L (22-26); ABG OXYGEN SATURATION 97.0 % (95-98); ABG PCO2 35 mmHg (35-45); ABG PH 7.43 (7.35-7.45); ABG PO2 91 mmHg (80-105); ABG TCO2 25
[2025-02-11 07:02] LABS: EST GLOMERULAR FILTRATION RATE 65.0 ML/MIN (>=60)
[2025-02-12] VITALS (11 sets, daily range): BP systolic 112–144; BP diastolic 64–86; PULSE 74–103; RESP 18–21; TEMP 97.5–98.6; O2SAT 95–100
[2025-02-12] MEDS: FENTANYL CITRATE/PF 100MCG/2 ML INJ ONE (09:07)
[2025-02-12] MEDS: SODIUM CHLORIDE 0.9% 500ML 500 ML ONE (09:08)
[2025-02-12] MEDS: GENTAMICIN SULFATE 40 MG/ML 2 ML VIAL ONE (09:08)
[2025-02-12] MEDS: MIDAZOLAM HCL 2 MG/2 ML VIAL ONE (09:08)
[2025-02-12] MEDS: LIDOCAINE HCL 2% LOCAL 20 ML VIAL ONE ×2 (09:08→09:22)
[2025-02-12] MEDS: IOPAMIDOL 610MG/1ML 300 MG/ML VIAL IV ONE (09:09)
[2025-02-12] MEDS: Vancomycin IV 1 GM VIAL ONE (09:09)
[2025-02-12] MEDS: SODIUM CHLORIDE 0.9% 250ML 250 ML ONE (09:22)
[2025-02-12] MEDS: SODIUM BICARBONATE 8.4% SYRING 50 ML ONE (09:22)
[2025-02-12] MEDS: SODIUM CHLORIDE 0.9% 1000ML 2,000 ML ONE (09:22)
[2025-02-12] MEDS: TAMSULOSIN HCL 0.4 MG CAP PO SCH (17:35)
[2025-02-12] MEDS: RIVAROXABAN 20 MG TABLET PO SCH (17:35)
[2025-02-13] VITALS (8 sets, daily range): BP systolic 108–119; BP diastolic 57–82; PULSE 64–98; RESP 17–20; TEMP 97.2–98.2; O2SAT 95–99
[2025-02-13 05:56] LABS: BASOPHILS % 0.5 % (0.0-1.0); EOSINOPHILS % 0.8 % (0.0-6.0); LYMPHOCYTES % 18.4 % (18.0-39.1); MONOCYTES % 6.7 % (4.4-11.3); NEUTROPHILS % 71.3 % (38.7-80.0); RED CELL DISTRIBUTION WIDTH 14.6 % (11.7-14.4)
[2025-02-13 06:16] LABS: PHOSPHORUS 3.3 MG/DL (2.3-4.7)
[2025-02-13 06:47] LABS: EST GLOMERULAR FILTRATION RATE 85.0 ML/MIN (>=60)
[2025-02-14] VITALS (7 sets, daily range): BP systolic 102–129; BP diastolic 65–81; PULSE 81–98; RESP 18–20; TEMP 97.5–97.7; O2SAT 97–100
== END 2025-02-14 18:40 | DRG 276 ==
LOC: ER 13:40 → ERHOLD 15:41 → ICU 17:19 → MED/SURG3 02-08 20:35
PROVIDERS: ADMIT Internal Medicine; ATTEND Internal Medicine
PROC: 3E033XZ Introduction of Vasopressor into Peripheral Vein, Percutaneous Approach (ICD-10-PCS; 2025-02-05)
PROC: 02HV33Z Insertion of Infusion Device into Superior Vena Cava, Percutaneous Approach (ICD-10-PCS; 2025-02-06)
PROC: 4A133R1 Monitoring of Arterial Saturation, Peripheral, Percutaneous Approach (ICD-10-PCS; 2025-02-07)
PROC: 02H63KZ Insertion of Defibrillator Lead into Right Atrium, Percutaneous Approach (ICD-10-PCS; principal; 2025-02-09)
PROC: 0JH608Z Insertion of Defibrillator Generator into Chest Subcutaneous Tissue and Fascia, Open Approach (ICD-10-PCS; 2025-02-09)
PROC: 02HL3KZ Insertion of Defibrillator Lead into Left Ventricle, Percutaneous Approach (ICD-10-PCS; 2025-02-09)
DX: I13.0 Hypertensive heart and chronic kidney disease with heart failure and stage 1 through stage 4 chronic kidney disease, or unspecified chronic kidney disease (principal); I50.23 Acute on chronic systolic (congestive) heart failure; K72.00 Acute and subacute hepatic failure without coma; R57.0 Cardiogenic shock; J96.90 Respiratory failure, unspecified, unspecified whether with hypoxia or hypercapnia; N17.9 Acute kidney failure, unspecified; E87.20 Acidosis, unspecified; E87.3 Alkalosis; E87.1 Hypo-osmolality and hyponatremia; N39.0 Urinary tract infection, site not specified; I42.8 Other cardiomyopathies; I48.0 Paroxysmal atrial fibrillation; D69.6 Thrombocytopenia, unspecified; E86.0 Dehydration; E11.22 Type 2 diabetes mellitus with diabetic chronic kidney disease; N18.30 Chronic kidney disease, stage 3 unspecified; I25.10 Atherosclerotic heart disease of native coronary artery without angina pectoris; I44.7 Left bundle-branch block, unspecified; R33.9 Retention of urine, unspecified; Z11.52 Encounter for screening for COVID-19; R74.8 Abnormal levels of other serum enzymes; R53.81 Other malaise; M10.9 Gout, unspecified; E78.5 Hyperlipidemia, unspecified; M19.90 Unspecified osteoarthritis, unspecified site; N40.0 Benign prostatic hyperplasia without lower urinary tract symptoms; Z79.01 Long term (current) use of anticoagulants; Z79.84 Long term (current) use of oral hypoglycemic drugs
CPT/HCPCS: 33225; 33249; 36415; 36600; 51700; 70450; 71045; 74176; 75820; 76700; 76770; 80048; 80053; 80061; 80076; 81001; 82550; 82570; 82607; 82805; 82948; 83036; 83605; 83690; 83735; 83880; 84100; 84156; 84436; 84443; 84479; 84484; 85014; 85018; 85025; 85379; 85610; 85730; 86039; 86200; 86431; 87040; 87086; 93005; 93306; 94799; 96372; 99152; 99153; 99252; 99284; C1769; C1777; C1882; C1898; C1900; J0690; J0696; J1580; J1644; J1938; J2003; J2250; J2405; J2543; J3373; J7030; J7040; J7050; P9047